=== PATIENT | female | born 1980 | race Caucasian/White ===

== ENCOUNTER 2016-03-27 14:36 | Emergency (ER) | payer BC, OTHER ==
[~2016-03-27] VITALS: Ht 160 cm; Wt 90.7 kg
[2016-03-27 15:08] VITALS: BP 131/91
--- NOTE | 2016-03-27 15:46 | PHYS DOC ---
Past Medical History Past Medical History: Other Additional Past Medical Histor: ovarian cancer Past Surgical History: Appendectomy, Hysterectomy Alcohol Use: None Drug Use: None Adult General Chief Complaint Chief Complaint: FOOT INJURY PAIN HPI HPI Patient is a 35 year old female who presents with mild right heel pain that began 5 days ago after she jumped off a broken elevator that was 7-8 foot high. Patient is up and ambulating with no difficulties. Review of Systems Review of Systems Constitutional: Denies fever or chills [] Musculoskeletal: Right heel pain Neurologic: Denies headache, focal weakness or sensory changes [] Endocrine: Denies polyuria or polydipsia [] Allergies Allergies Allergies Coded Allergies Type Severity Reaction Last Updated Verified codeine Allergy Intermediate Rash 03/27/16 Yes Physical Exam Physical Exam Constitutional: Well developed, well nourished, no acute distress, non-toxic appearance. [] Skin: Warm, dry, no erythema, no rash. [] Back: No tenderness, no CVA tenderness. [] Extremities: Right foot with no obvious deformity, no ecchymosis or edema. Tenderness diffusely on palpation of the right heel and Achilles tendon region. Patient able to flex and extend the right foot with no difficulty. +2 right pedal pulse. No pain or tenderness on palpation of the navicular bone or the base of the fifth metatarsal of the right foot. Cap refill less than 2 seconds the right toes. Sensation intact to the right foot. Neurologic: Alert and oriented X 3, normal motor function, normal sensory function, no focal deficits noted. [] Psychologic: Affect normal, judgement normal, mood normal. [] Current Patient Data Vital Signs Vital Signs Date Time Temp Pulse Resp B/P Pulse Ox O2 Delivery O2 Flow Rate FiO2 03/27/16 15:08 98.3 69 16 99 Room Air 98.3 EKG EKG [] Radiology/Procedures Radiology/Procedures []PROCEDURE: ANKLE RIGHT 3V; FOOT RIGHT 3V Indication pain associated with a fall. AP oblique and lateral views of the right ankle were obtained. Similarly AP oblique and lateral views of the foot were obtained. Views of the ankle are unremarkable. No fracture or bony abnormality is seen. Views of the foot also appear unremarkable showing no bony abnormality. IMPRESSION: No acute or significant finding seen involving the foot or ankle DICTATED and SIGNED BY: CHRISTINE MAN MD DATE: 03/27/16 7115 CC: GARFIELD GUARDADO APRN; NO PCP ~ Course & Med Decision Making Course & Med Decision Making Pertinent Labs and Imaging studies reviewed. (See chart for details) Patient is in the ED with right foot/heel pain after jumping off and elevator five days ago. Right foot and right ankle x-rays interpreted by radiologist are negative for any acute findings. Patient probably sprained her right ankle/ foot. Aircast applied to the right ankle by the Ed RN. Neurovascular exam done by me is normal. Cap refill less than 2 seconds. Ice elevation encouraged. F/u with Ortho in one week. Dragon Disclaimer Dragon Disclaimer This electronic medical record was generated, in whole or in part, using a voice recognition dictation system. Departure Departure Impression: Primary Impression: Right ankle sprain Additional Impression: Right foot sprain Disposition: HOME, SELF-CARE Condition: STABLE Referrals: NO PCP (PCP) JENNIFFER RESENDIZ MD see him in one week Patient Instructions: Ankle Sprain, Foot Sprain Additional Instructions: You were seen for right ankle/foot sprain. Your x-rays of the ankle and foot are normal. Wear the air cast as needed. Ice and elevate the extremity. Take anti-inflammatories especially naproxen as needed for pain. You can also take Tylenol for pain. Follow-up with the provided orthopedic doctor in one week if pain continues. Problem Qualifiers Primary Impression: Right ankle sprain Encounter type: initial encounter Involved ligament of ankle: unspecified ligament Qualified Code: S93.401A - Sprain of unspecified ligament of right ankle, initial encounter Additional Impression: Right foot sprain Encounter type: initial encounter Qualified Code: S93.601A - Unspecified sprain of right foot, initial encounter GARFIELD GUARDADO APRN Mar 27, 2016 15:46
--- NOTE | 2016-03-27 15:52 | RAD ---
Indication pain associated with a fall. AP oblique and lateral views of the right ankle were obtained. Similarly AP oblique and lateral views of the foot were obtained. Views of the ankle are unremarkable. No fracture or bony abnormality is seen. Views of the foot also appear unremarkable showing no bony abnormality. IMPRESSION: No acute or significant finding seen involving the foot or ankle
== END 2016-03-27 16:43 | disposition home or self-care (01) ==
LOC: ER 14:36
DX: S93.401A Sprain of unspecified ligament of right ankle, initial encounter (principal); S93.601A Unspecified sprain of right foot, initial encounter; Z88.5 Allergy status to narcotic agent; W17.89XA Other fall from one level to another, initial encounter; Y93.39 Activity, other involving climbing, rappelling and jumping off; Y99.8 Other external cause status; Y92.89 Other specified places as the place of occurrence of the external cause
CPT/HCPCS: 73610; 73630; 99284; L4350

== ENCOUNTER 2018-01-29 15:15 | Emergency (ER) | payer BC ==
[~2018-01-29] VITALS: Ht 157.5 cm; Wt 102.1 kg
[2018-01-29] MEDS ORDERED: predniSONE 10 MG TABLET PO ONE (16:00)
[2018-01-29] MEDS ORDERED: IBUPROFEN 400 MG TABLET. PO ONE (16:00)
[2018-01-29] MEDS ORDERED: IPRATRPIUM/ALBUTEROL 0.5/2.5MG 3 ML NEBU. NEB ONE (16:00)
--- NOTE | 2018-01-29 16:19 | RAD ---
CHEST PA LATERAL History: SOA, CHEST PAIN, COUGH Comparison: Two-view chest October 29, 2011. Findings: The cardiomediastinal silhouette is normal. Pulmonary vasculature is normal. The lungs are clear. No pleural effusion or pneumothorax is seen. There is no acute bone abnormality. IMPRESSION: No acute cardiopulmonary process. Electronically signed by: Devang Alejandra MD (01/29/2018 4:15 PM) [id number]
[2018-01-29 16:20] LABS: INFLUENZA A PATIENT NEGATIVE (NEGATIVE); INFLUENZA B PATIENT NEGATIVE (NEGATIVE)
[2018-01-29] MEDS ORDERED: AZIT250T6 PO (16:31)
[2018-01-29] MEDS ORDERED: PRED50TA PO (16:31)
[2018-01-29] MEDS ORDERED: BENZ100C PO (16:31)
[2018-01-29] MEDS ORDERED: PROAIR HFA8.5 GM INH (16:31)
--- NOTE | 2018-01-29 16:31 | PHYS DOC ---
Past Medical History Past Medical History: Other Additional Past Medical Histor: ovarian cancer Past Surgical History: Appendectomy, Hysterectomy Additional Information: 02/18 ppd Alcohol Use: None Drug Use: None Adult General Chief Complaint Chief Complaint: COUGH HPI HPI Patient is a 37 year old female who presents with 2 weeks of shortness of air, cough, rib pain from coughing and coughing up green mucus with chest congestion and throat pain and bilateral ear pain. Patient easily when taking Abimbola-Ferguson and Mucinex which isn't helping. Patient is allergic to codeine and did receive a flu shot. Patient denies fevers. She rates her pain an 8 out of 10. She does smoke but she is trying to stop. She is taking Wellbutrin Lexapro. Review of Systems Review of Systems Constitutional: Denies fever or chills [] Eyes: Denies change in visual acuity, redness, or eye pain [] HENT: nasal congestion and sore throat [] Respiratory: cough and shortness of breath [] Cardiovascular: No additional information not addressed in HPI [] GI: Denies abdominal pain, nausea, vomiting, bloody stools or diarrhea [] : Denies dysuria or hematuria [] Musculoskeletal: Denies back pain or joint pain [] Integument: Denies rash or skin lesions [] Neurologic: Denies headache, focal weakness or sensory changes [] Endocrine: Denies polyuria or polydipsia [] All other systems were reviewed and found to be within normal limits, except as documented in this note. Current Medications Current Medications Current Medications Medications (Trade) Dose Ordered Sig/Alonzo Start Time Stop Time Status Last Admin Dose Admin Albuterol/ Ipratropium (Duoneb) 3 ml 1X ONCE 01/29/18 16:00 01/29/18 16:01 DC 01/29/18 16:08 3 ML Ibuprofen (Motrin) 800 mg 1X ONCE 01/29/18 16:00 01/29/18 16:01 DC 01/29/18 16:01 800 MG Prednisone (Prednisone) 50 mg 1X ONCE 01/29/18 16:00 01/29/18 16:01 DC 01/29/18 16:00 50 MG Allergies Allergies Allergies Coded Allergies Type Severity Reaction Last Updated Verified codeine Allergy Intermediate Rash 03/27/16 Yes Physical Exam Physical Exam Constitutional: Well developed, well nourished, no acute distress, non-toxic appearance. [] HENT: Normocephalic, atraumatic, bilateral external ears normal, oropharynx moist, no oral exudates, nose normal. Nasal congestion, throat red but without exudates.[] Eyes: PERRLA, EOMI, conjunctiva normal, no discharge. [] Neck: Normal range of motion, no tenderness, supple, no stridor. [] Cardiovascular:Heart rate regular rhythm, no murmur [] Lungs & Thorax: Bilateral upper breath sounds clear to auscultation and lower bilaterally are diminished [] Abdomen: Bowel sounds normal, soft, no tenderness, no masses, no pulsatile masses. [] Skin: Warm, dry, no erythema, no rash. [] Back: No tenderness, no CVA tenderness. [] Extremities: No tenderness, no cyanosis, no clubbing, ROM intact, no edema. [] Neurologic: Alert and oriented X 3, normal motor function, normal sensory function, no focal deficits noted. [] Psychologic: Affect normal, judgement normal, mood normal. [] Current Patient Data Vital Signs Vital Signs Date Time Temp Pulse Resp B/P (MAP) Pulse Ox O2 Delivery O2 Flow Rate FiO2 01/29/18 16:08 Room Air 01/29/18 15:28 99.2 76 20 134/65 (88 98 99.2 Lab Values Laboratory Tests Test 01/29/18 15:55 Influenza Type A Antigen Negative (NEGATIVE) Influenza Type B Antigen Negative (NEGATIVE) EKG EKG [] Radiology/Procedures Radiology/Procedures [] Impressions: [facility] [address] [facility] [place] [address] IMAGING REPORT Signed PATIENT: DAVIDSON ANGULO ACCOUNT: [id number] : 1980 LOCATION: ER AGE: 37 SEX: F EXAM STATUS: REG ER ORD. PHYSICIAN: YONI YEUNG APRN REASON: cough PROCEDURE: CHEST PA & LATERAL CHEST PA LATERAL History: SOA, CHEST PAIN, COUGH Comparison: Two-view chest October 29, 2011. Findings: The cardiomediastinal silhouette is normal. Pulmonary vasculature is normal. The lungs are clear. No pleural effusion or pneumothorax is seen. There is no acute bone abnormality. IMPRESSION: No acute cardiopulmonary process. Electronically signed by: Devang Donahue MD (01/29/2018 4:15 PM) [id number] DICTATED and SIGNED BY: DEVANG DONAHUE MD DATE: 01/29/18 1614 Course & Med Decision Making Course & Med Decision Making Patient is a 37 year old female who presents with 2 weeks of shortness of air, cough, rib pain from coughing and coughing up green mucus with chest congestion and throat pain and bilateral ear pain. Patient easily when taking Abimbola-Ferguson and Mucinex which isn't helping. Patient is allergic to codeine and did receive a flu shot. Patient denies fevers. Patient denies dizziness, chest pain, nausea , vomiting, diarrhea, abdominal pain. She rates her pain an 8 out of 10. She does smoke but she is trying to stop. She is taking Wellbutrin Lexapro. And oriented. Skin pink warm and dry. Lungs are clear in upper lobes but diminished in bilateral lower lobes. There is red but there are no exudates. Patient has sinus congestion with sinus tenderness and bilateral tympanic are pearly white. Patient is afebrile. Flu was negative and strep is negative. She is given a breathing treatment, prednisone, ibuprofen and will be diagnosed with likely bronchitis. I will send her home with azithromycin since she has been having symptoms for the last 2 weeks, prednisone for 4 more days and a pro-air inhaler. Patient is told that she needs to call her doctor within the next 3 days but states she is not getting better. Dragon Disclaimer Dragon Disclaimer This electronic medical record was generated, in whole or in part, using a voice recognition dictation system. Departure Departure Impression: Primary Impression: Bronchitis Disposition: 01 HOME, SELF-CARE Condition: STABLE Referrals: NO PCP (PCP) Patient Instructions: Bronchitis Additional Instructions: CALL YOUR PRIMARY CARE DOCTOR IN THE MORNING. TAKE MEDICATIONS PRESCRIBED. Scripts Benzonatate (TESSALON PERLE) 100 Mg Capsule 1 CAP PO TID, #30 CAP Prov: YONI YEUNG MEAL COOK 01/29/18 Prednisone (PREDNISONE) 50 Mg Tablet 1 TAB PO DAILY, #4 TAB Prov: YONI YEUNG MEAL COOK 01/29/18 Albuterol Sulfate (PROAIR HFA INHALER) 8.5 Gm Hfa.aer.ad 1 PUFF INH PRN Q6HRS PRN for SHORTNESS OF BREATH, #1 INHALER 0 Refills Prov: YONI YEUNG APRN 01/29/18 Azithromycin (AZITHROMYCIN TABLET) 250 Mg Tablet 1 PKG PO UD, #6 TAB Prov: YONI YEUNG APRN 01/29/18 YONI YEUNG APRN Jan 29, 2018 16:31
[2018-01-29 16:39] VITALS: BP 132/68
== END 2018-01-29 16:39 | disposition home or self-care (01) ==
LOC: ER 15:15
DX: J40 Bronchitis, not specified as acute or chronic (principal); J02.9 Acute pharyngitis, unspecified; H92.03 Otalgia, bilateral; F17.200 Nicotine dependence, unspecified, uncomplicated; Z90.89 Acquired absence of other organs; Z90.710 Acquired absence of both cervix and uterus; Z88.5 Allergy status to narcotic agent
CPT/HCPCS: 71046; 87070; 87804; 87880; 94640; 99284; J7512; J7620

== ENCOUNTER 2018-02-08 00:02 | Emergency (ER) | payer BC ==
[~2018-02-08] VITALS: Ht 157.5 cm; Wt 99.8 kg
[~2018-02-08 00:02] MED LIST: ALBU2.5V8 INH; AZIT250T6 PO; BENZ100C PO; PRED50TA PO
[2018-02-08 03:15] VITALS: BP 121/61
[2018-02-08] MEDS ORDERED: oxyCODONE/APAP 10/325 1 TAB TABLET PO ONE (03:30)
--- NOTE | 2018-02-08 04:07 | PHYS DOC ---
Past Medical History Past Medical History: Other Additional Past Medical Histor: depression Past Surgical History: Hysterectomy Alcohol Use: None Drug Use: None Adult General Chief Complaint Chief Complaint: RIB PAIN HPI HPI Patient is a 37 year old female treated recently his emergency department for bronchial pneumonia who presents with acute chest wall pain after forceful coughing episode 3 days ago. Patient reports pain with deep inspiration and movement. No fever, chills, nausea vomiting or sweats. Denies shortness of breath. No leg pain or swelling. No history of DVT or PE. No other acute symptoms or complaints. [] Review of Systems Review of Systems Review symptoms as per history of present illness All other systems were reviewed and found to be within normal limits, except as documented in this note. Current Medications Current Medications Current Medications Medications (Trade) Dose Ordered Sig/Alonzo Start Time Stop Time Status Last Admin Dose Admin Oxycodone/ Acetaminophen (Percocet 10/325) 1 tab 1X ONCE 02/08/18 03:30 02/08/18 03:31 DC 02/08/18 02:59 1 TAB Allergies Allergies Allergies Coded Allergies Type Severity Reaction Last Updated Verified codeine Allergy Intermediate Rash 03/27/16 Yes Physical Exam Physical Exam Constitutional: Well developed, well nourished,or discomfort secondary to pain. [] HENT: Normocephalic, atraumatic, bilateral external ears normal, oropharynx moist, no oral exudates, nose normal. [] Eyes: PERRLA, EOMI, conjunctiva normal, no discharge. [] Neck: Normal range of motion, no tenderness, supple, no stridor. [] Cardiovascular:Heart rate regular rhythm, no murmur [] Lungs & Thorax: Bilateral breath sounds clear to auscultation, right lower anterior chest wall pain, tenderness. No splinting, subcutaneous emphysema or [] Abdomen: Bowel sounds normal, soft, no tenderness, no masses, no pulsatile masses. [] Skin: Warm, dry. [] Back: No tenderness. [] Extremities: No tenderness. [] Neurologic: Alert and oriented X 3, normal motor function, normal sensory function, no focal deficits noted. [] Psychologic: Affect , anxious.l. [] Current Patient Data Vital Signs Vital Signs Date Time Temp Pulse Resp B/P (MAP) Pulse Ox O2 Delivery O2 Flow Rate FiO2 02/08/18 02:59 18 100 Room Air 02/08/18 01:38 97.5 88 150/75 (100) 97.5 EKG EKG [] Radiology/Procedures Radiology/Procedures [Chest x-ray/right rib series: No obvious displaced rib fractures on preliminary ED reviewed.] Course & Med Decision Making Course & Med Decision Making Pertinent Labs and Imaging studies reviewed. (See chart for details) [Reproducible chest wall pain consistent with contused or nondisplaced rib fracture. We'll treat supportively with PCP follow-up. Return precautions reviewed.] Dragon Disclaimer Dragon Disclaimer This electronic medical record was generated, in whole or in part, using a voice recognition dictation system. Departure Departure Impression: Primary Impression: Rib pain on right side Disposition: HOME, SELF-CARE Condition: GOOD Referrals: NO PCP (PCP) Patient Instructions: Rib Contusion Additional Instructions: You were evaluated in the emergency department for right-sided chest wall pain. A chest x-ray was obtained. your tenderness consistent with a bruised rib or nondisplaced rib fracture. Please continue to believe twice daily and take hydrocodone as needed for additional relief. Follow-up with your PCP in 3-5 days for reevaluation.return to the ED if new or worsening symptoms. HENNY ARENAS DO Feb 08, 2018 04:07
--- NOTE | 2018-02-08 04:15 | RAD ---
Right RIBS including PA chest 02/08/2018. Reason for exam: Mid rib pain. No history of trauma is given. The chest film is compared with a study of 01/29/2018. No fracture or other abnormality of the right ribs is seen in these views. The PA view of the chest shows shallow inspiration without evidence of infiltrate or effusion. Heart size is normal. IMPRESSION: No apparent right rib abnormality. Electronically signed by: Bereket Cruz Jr., MD (02/08/2018 4:10 AM) [facility]
[2018-02-08] MEDS ORDERED: HYDR-3135 PO (04:42)
== END 2018-02-08 04:43 | disposition home or self-care (01) ==
LOC: ER 00:02
DX: R07.81 Pleurodynia (principal); R05 Cough; F32.9 Major depressive disorder, single episode, unspecified; Z88.5 Allergy status to narcotic agent
CPT/HCPCS: 71101; 99283

== ENCOUNTER 2018-03-09 16:28 | Emergency (ER) | payer BC ==
[~2018-03-09] VITALS: Ht 160 cm; Wt 99.8 kg
[~2018-03-09 16:28] MED LIST changes: +HYDR-3135 PO
[2018-03-09 19:05] VITALS: BP 138/70
[2018-03-09] MEDS ORDERED: IBUPROFEN 400 MG TABLET. PO ONE (19:15)
[2018-03-09] MEDS ORDERED: IBUP-1060 PO (19:25)
[2018-03-09] MEDS ORDERED: CEPH-264 PO (19:25)
[2018-03-09] MEDS ORDERED: HYDR-3164 PO (19:25)
[2018-03-09] MEDS ORDERED: HYDROcodone/APAP 5/325MG 1 TAB TABLET PO ONE (19:30)
[2018-03-09] MEDS ORDERED: CEPHALEXIN 250 MG CAPSULE. PO ONE (19:30)
--- NOTE | 2018-03-09 19:44 | PHYS DOC ---
Past Medical History Past Medical History: Other Additional Past Medical Histor: depression Past Surgical History: Hysterectomy Alcohol Use: None Drug Use: None Adult General Chief Complaint Chief Complaint: FINGER INJURY HPI HPI Patient is a 37 year old female who presents with fingernail avulsion. Patient states she fell 2 days earlier on the ice. She fell on outstretched hand. She did completely avulsed her fingernail on the left small finger. She presents to the ER today with pain and swelling. She does have the nail with her. Review of Systems Review of Systems Constitutional: Denies fever or chills HENT: Denies nasal congestion Respiratory: Denies cough or shortness of breath Cardiovascular: No additional information not addressed in HPI Musculoskeletal: Denies injuries other than those above Integument: Denies rash or skin lesions Neurologic: Denies Endocrine: Denies All other systems were reviewed and found to be within normal limits, except as documented in this note. Current Medications Current Medications Current Medications Medications (Trade) Dose Ordered Sig/Alonzo Start Time Stop Time Status Last Admin Dose Admin Acetaminophen/ Hydrocodone Bitart (Lortab 5/325) 2 tab 1X ONCE 03/09/18 19:30 03/09/18 19:31 DC Cephalexin HCl (Keflex) 500 mg 1X ONCE 03/09/18 19:30 03/09/18 19:31 DC Ibuprofen (Motrin) 800 mg 1X ONCE 03/09/18 19:15 03/09/18 19:16 DC Allergies Allergies Allergies Coded Allergies Type Severity Reaction Last Updated Verified codeine Allergy Intermediate Rash 03/09/18 Yes Physical Exam Physical Exam Constitutional: Well developed, well nourished, no acute distress, non-toxic appearance HENT: Normocephalic, atraumatic, bilateral external ears normal, oropharynx moist Skin: Warm, dry, no erythema, no rash. Back: Normal ROM Extremities: Left hand has complete avulsion of the small fingernail. The remaining finger has some localized edema and erythema. The nailbed appears to be intact and healing. Capillary refill is less than 2 seconds. Sensation light touch intact. All flexor and extensor mechanisms are intact. Sensation to light touch is intact. Neurologic: Alert and oriented X 3 Psychologic: Affect normal EKG EKG [] Radiology/Procedures Radiology/Procedures [] Course & Med Decision Making Course & Med Decision Making Pertinent Labs and Imaging studies reviewed. (See chart for details) Was evaluated in the emergency department today for a nail avulsion of the left hand. There was no indication for imaging. The patient has full range of motion. She had some erythema at the tip of the finger which is concerning for possible infection so the patient is started on Keflex. She was given ibuprofen and [place] for pain. Her tetanus immunization was up-to-date. She was recommended to follow-up with her primary care doctor. She was given also a metal finger splint primarily for comfort. Return to the ER for any new or acute symptoms. Dragon Disclaimer Dragon Disclaimer This electronic medical record was generated, in whole or in part, using a voice recognition dictation system. Departure Departure Impression: Primary Impression: Fingernail avulsion Disposition: 01 HOME, SELF-CARE Condition: GOOD Patient Instructions: Fingernail or Toenail Loss Scripts Cephalexin (KEFLEX) 500 Mg Capsule 500 MG PO QID for 10 Days, #40 CAP Prov: DOYLE JORDAN DO 03/09/18 Hydrocodone/Apap 5-325 (NORCO 5-325 TABLET) 1 Each Tablet 1-2 EACH PO PRN Q6HRS PRN for SEVERE PAIN, #15 as needed for pain Prov: DOYLE JORDAN DO 03/09/18 Ibuprofen (IBUPROFEN) 800 Mg Tablet 800 MG PO PRN TID PRN for PAIN, #30 TAB take with food or milk to avoid upsetting stomach Prov: DOYLE JORDAN DO 03/09/18 DOYLE JORDAN DO Mar 09, 2018 19:44
== END 2018-03-09 19:40 | disposition home or self-care (01) ==
LOC: ER 16:28
DX: S61.307A Unspecified open wound of left little finger with damage to nail, initial encounter (principal); F32.9 Major depressive disorder, single episode, unspecified; Z90.710 Acquired absence of both cervix and uterus; Z88.5 Allergy status to narcotic agent; W00.0XXA Fall on same level due to ice and snow, initial encounter; Y93.89 Activity, other specified; Y92.89 Other specified places as the place of occurrence of the external cause; Y99.8 Other external cause status
CPT/HCPCS: 99284

== ENCOUNTER 2019-06-27 13:42 | Emergency (ER) | payer SELFPAY ==
[~2019-06-27] VITALS: Ht 160 cm; Wt 95.0 kg
[2019-06-27 13:42] VITALS: BP 142/95
[~2019-06-27 13:42] MED LIST changes: +AMOX1TAB61 PO; +CEPH-264 PO; +HYDR-3164 PO; +HYDR5SUS PO; +IBUP-1060 PO; +METH4TAB2 PO
[2019-06-27] MEDS ORDERED: AMOX500C PO (14:09)
--- NOTE | 2019-06-27 14:09 | PHYS DOC ---
Past Medical History Past Medical History: Cancer, Other Additional Past Medical Histor: depression Past Surgical History: Hysterectomy Smoking Status: Current Every Day Smoker Alcohol Use: None Drug Use: None General Adult EDM: Chief Complaint: SORE THROAT HPI: HPI: Patient is a 38-year-old otherwise healthy female who presents with a sore throat and fever. She states she gets strep every year and this feels just like it. She has difficulty swallowing. She denies any cough or congestion. She denies any rash. [] Review of Systems: Review of Systems: Constitutional: Denies fever or chills. [] Eyes: Denies change in visual acuity. [] HENT: Per HPI. [] Respiratory: Denies cough or shortness of breath. [] Cardiovascular: Denies chest pain or edema. [] GI: Denies abdominal pain, nausea, vomiting, bloody stools or diarrhea. [] : Denies dysuria. [] Musculoskeletal: Denies back pain or joint pain. [] Integument: Denies rash. [] Neurologic: Denies headache, focal weakness or sensory changes. [] Endocrine: Denies polyuria or polydipsia. [] Lymphatic: Denies swollen glands. [] Psychiatric: Denies depression or anxiety. [] Heart Score: Risk Factors: Risk Factors: DM, Current or recent (<one month) smoker, HTN, HLP, family history of CAD, obesity. Risk Scores: Score 0 - 3: 2.5% MACE over next 6 weeks - Discharge Home Score 4 - 6: 20.3% MACE over next 6 weeks - Admit for Clinical Observation Score 7 - 10: 72.7% MACE over next 6 weeks - Early Invasive Strategies Allergies: Allergies: Allergies Coded Allergies Type Severity Reaction Last Updated Verified codeine Allergy Intermediate Rash 03/09/18 Yes Physical Exam: PE: Constitutional: Well developed, well nourished, no acute distress, non-toxic appearance. [] HENT: Normocephalic, atraumatic, bilateral external ears normal, posterior pharynx is erythematous with exudative plaques. [] Eyes: PERRLA, EOMI, conjunctiva normal, no discharge. [] Neck: Normal range of motion, no tenderness, supple, no stridor. [] Cardiovascular:Heart rate regular rhythm, no murmur [] Lungs & Thorax: Bilateral breath sounds clear to auscultation [] Abdomen: Bowel sounds normal, soft, no tenderness, no masses, no pulsatile masses. [] Skin: Warm, dry, no erythema, no rash. [] Back: No tenderness, no CVA tenderness. [] Extremities: No tenderness, no cyanosis, no clubbing, ROM intact, no edema. [] Neurologic: Alert and oriented X 3, normal motor function, normal sensory function, no focal deficits noted. [] Psychologic: Affect normal, judgement normal, mood normal. [] EKG: EKG: [] Radiology/Procedures: Radiology/Procedures: [] Course & Med Decision Making: Course & Med Decision Making Pertinent Labs and Imaging studies reviewed. (See chart for details) [] Dragon Disclaimer: Dragon Disclaimer: This electronic medical record was generated, in whole or in part, using a voice recognition dictation system. Departure Departure Impression: Primary Impression: Strep pharyngitis Disposition: HOME, SELF-CARE Condition: STABLE Referrals: NO PCP (PCP) Patient Instructions: Strep Throat Scripts Amoxicillin (AMOXICILLIN) 500 Mg Capsule 1 CAP PO TID for pharyngitis, #30 CAP Prov: TA THAKKAR DO 06/27/19 TA THAKKAR DO June 27, 2019 14:09
== END 2019-06-27 14:34 | disposition home or self-care (01) ==
LOC: ER 13:42
DX: J02.0 Streptococcal pharyngitis (principal); B95.5 Unspecified streptococcus as the cause of diseases classified elsewhere; R50.9 Fever, unspecified; F32.9 Major depressive disorder, single episode, unspecified; F17.200 Nicotine dependence, unspecified, uncomplicated; Z85.9 Personal history of malignant neoplasm, unspecified; Z90.710 Acquired absence of both cervix and uterus; Z88.5 Allergy status to narcotic agent
CPT/HCPCS: 99283

== ENCOUNTER 2021-04-07 03:00 | Emergency (ER) | payer SELFPAY ==
[~2021-04-07] VITALS: Ht 160 cm; Wt 114.0 kg
[~2021-04-07 03:00] MED LIST changes: +AMOX500C PO
--- NOTE | 2021-04-07 03:26 | PHYS DOC ---
Past Medical History Past Medical History: Cancer, Other Additional Past Medical Histor: depression Past Surgical History: Hysterectomy Smoking Status: Current Every Day Smoker Alcohol Use: None Drug Use: None General Adult EDM: Chief Complaint: SHORTNESS OF BREATH HPI: HPI: 40-year-old female past medical history of ovarian cancer (s/p JESSICA-BSO, no chemo/rads-diagnosed 13 yrs ago s/p ), obesity, tobacco and vaping, presents to the ED with complaints of " I feel I cannot breathe and my sternum is broken." Patient complains of intermittent shortness of breath and mild, nonradiating chest pain for the past 4 to 5 days 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 States she had Covid in December 2020 in January 2021. Did not require hospitalization or supplemental oxygen. Has no underlying lung disease. No history of cocaine, alcohol or drug use. States she had hydrocodone/apap 5/325 left over from right ankle surgery and she took 1 tablet last night with significant relief in her pain, "I was able to sle ep." Reports her friend told her she likely had walking pneumonia. Is worried because she has a trip planned to [place] tomorrow. Refuses covid vaccination due to "too many allergies." States "my throat closes up with codeine," but has never required any hospitalization or intubation. Also states "I think I'm immunocompromised but haven't been diagnosed." Reports grandfather with history of brain aneurysm. No personal or family history of AAA, AAD, CTD (ehlos danlos or marfans), cardiac arrhythmias (need for AICD), CAD, sudden or unexplainable (under 50 years of age or with exertion), or clotting disorders. Review of Systems: Review of Systems: Constitutional: Denies fever or chills. [] Eyes: Denies change in visual acuity. [] HENT: Denies nasal congestion or sore throat. [] Respiratory: Denies hemoptysis or increased work of breathing Cardiovascular: Denies syncope or edema. [] GI: Denies abdominal pain, nausea, vomiting, bloody stools or diarrhea. [] : Denies dysuria or vaginal bleeding Musculoskeletal: Denies back pain or joint pain or leg swelling Integument: Denies rash or diaphoresis Neurologic: Denies headache, focal weakness or sensory changes. [] Endocrine: Denies polyuria or polydipsia. [] Lymphatic: Denies swollen glands. [] Psychiatric: Denies depression or anxiety. [] Heart Score: C/O Chest Pain: Yes HEART Score for Chest Pain: HEART Score for Chest Pain Response (Comments) Value History Slighlty/Non-Suspicious 0 ECG Normal 0 Age < 45 0 Risk Factors 1 or 2 Risk Factors 1 Troponin < Normal Limit 0 Total 1 Risk Factors: Risk Factors: DM, Current or recent (<one month) smoker, HTN, HLP, family history of CAD, obesity. Risk Scores: Score 0 - 3: 2.5% MACE over next 6 weeks - Discharge Home Score 4 - 6: 20.3% MACE over next 6 weeks - Admit for Clinical Observation Score 7 - 10: 72.7% MACE over next 6 weeks - Early Invasive Strategies Allergies: Allergies: Allergies Coded Allergies Type Severity Reaction Last Updated Verified codeine Allergy Intermediate Rash 03/09/18 Yes Physical Exam: PE: Constitutional: Well developed, well nourished, no acute distress, non-toxic appearance. HENT: Normocephalic, atraumatic, Eyes: EOMI, conjunctiva normal, no discharge. Neck: Normal range of motion, supple, Cardiovascular: S1/2 present, regular rhythm, sternal & parasternal ttp-no crepitus Lungs & Thorax: Speaking in full sentences, bilateral equal chest rise, no tachypnea or increased work of breathing, dry cough present Abdomen: soft, no tenderness, Skin: Warm, dry, no erythema, no rash. [] Back: No tenderness, no CVA tenderness. [] Extremities: No tenderness, no cyanosis, no unilateral lower extremity edema Neurologic: Alert and oriented X 3, normal motor function, normal sensory function, no focal deficits noted. [] Psychologic: Affect normal, judgement normal, mood normal. [] EKG: EKG: Sinus rhythm 83 bpm, no axis deviation, normal intervals, no T wave inversion, no ST elevation or ST depression Radiology/Procedures: Radiology/Procedures: IMAGING REPORT Signed PATIENT: DAVIDSON ANGULO ACCOUNT: [id number] : 1980 LOCATION: ER AGE: 40 SEX: F EXAM STATUS: PRE ER ORD. PHYSICIAN: GI MENDEZ DO REASON: cp PROCEDURE: PORTABLE CHEST 1V XR CHEST 1V INDICATION: cp COMPARISON STUDY: None. FINDINGS: Lungs: Normal lung volume. No pulmonary mass or consolidation. The tracheobronchial tree and hilar structures are normal. Pleura: No pleural effusion or pneumothorax. Heart and Mediastinum: The cardiomediastinal silhouette is normal. The great vessels of the thorax are normal. Bones and Soft Tissues: The bones and soft tissues are within normal limits. IMPRESSION: No acute cardiopulmonary process. Electronically signed by: Sudhir Espana MD (04/07/2021 3:35 AM) [facility] DICTATED and SIGNED BY: SUDHIR ESPANA MD DATE: 04/07/21 [id number] 0 IMAGING REPORT Signed PATIENT: DAVIDSON ANGULO ACCOUNT: [id number] : 1980 LOCATION: ER AGE: 40 SEX: F EXAM STATUS: REG ER ORD. PHYSICIAN: GI MENDEZ DO REASON: soa, recent covid, r/o pe, OMNI 350 100 ML IV PROCEDURE: CT ANGIOGRAPHY CHEST CTA CHEST INDICATION: soa, recent covid, r/o pe Comparison: Chest radiograph 04/07/2021. TECHNIQUE: Following the uneventful administration of intravenous contrast, 100 cc Omnipaque 350, axial CT sections were obtained through the lungs and upper abdomen. Multiplanar reconstructions and MIP images were obtained. PQRS compliance statement: One or more of the following individualized dose reduction techniques were utilized for this examination: 1. Automated exposure control 2. Adjustment of the mA and/or kV according to patient size 3. Use of iterative reconstruction technique FINDINGS: Pulmonary arteries: No evidence of pulmonary thromboembolic disease Lungs and Airways: No pulmonary mass or consolidation. No abnormality of the central airways. Pleura: The pleural spaces are normal. Heart and Mediastinum: The visualized thyroid is normal in size and attenuation. No axillary or supraclavicular lymphadenopathy. No mediastinal, hilar or retrocrural lymphadenopathy. The heart and pericardium are within normal limits. The great vessels of the thorax are normal. Abdomen: Limited images through the upper abdomen show no abnormality of the visualized organs. Bones and Soft Tissues: The visualized bones and chest wall soft tissues are within normal limits. IMPRESSION: 1. No evidence of pulmonary thromboembolic disease. 2. No pulmonary mass or consolidation Electronically signed by: Sudhir Espana MD (04/07/2021 5:09 AM) [facility] DICTATED and SIGNED BY: SUDHIR ESPANA MD DATE: 04/07/21 [id number] 0 Impression: 1 criteria-If any criteria are positive, the PERC rule cannot be used to rule out PE in this patient. Course & Med Decision Making: Course & Med Decision Making Pertinent Labs and Imaging studies reviewed. (See chart for details) Concern for focal, sternal, nonradiating chest pain for approximately 4-5 days. On reevaluation pain is reproducible with palpation. No relief with fentanyl. Was treated with Toradol and lidocaine patch in emergency department with improvement in pain. EKG with no ischemia. Troponin and D-dimer within normal limits (unable to PERC out due to saturations of 94%). CT of the chest shows no pulmonary embolus or infiltrate. Patient hemodynamically stable, calm, in no distress and afebrile. Patient denies any prior liver disease and admits to a few drinks of alcohol prior to ED arrival. No history of elevated liver enzymes. I recommended oral hydration, NSAIDs (consider topical >> oral if no relief with oral) and lidocaine patches. Will discharge home with strict ED return precautions were given for severe pain, syncope or neurologic deficits. Encouraged urgent outpatient follow-up with PMD for routine care and to repeat liver enzymes. Life-threatening processes were considered but are low suspicion at this time, given history, physical exam and ED workup. Pt was educated on all prescription medications and adverse effects. All patient's questions were answered and pt was stable at time of discharge. Life/limb-threatening differential includes but is not limited to, acute myocardial infarction, aortic dissection, congestive heart failure, esophageal injury including rupture, surgical abdomen, arrhythmia, cardiomyopathy, myocarditis, pericarditis, peptic ulcer disease, pneumomediastinum, pneumonia, pneumothorax, pulmonary embolus, unstable angina, rib fracture, contusion, pericardial tamponade or effusion, traumatic injury including mediastinal hemorrhage or hematoma, or pulmonary contusion. I have spoken with the patient and/or caregivers. I explained the patient's condition, diagnoses and treatment plan based on the information available to me at this time. I have answered the patient and/or caregiver's questions and addressed any concerns. The patient and/or caregivers have a good understanding of patient's diagnosis, condition and treatment plan as can be expected at this point. Vital signs have been stable. Patient's condition is stable and appropriate for discharge from the emergency department. Patient will pursue further outpatient evaluation with primary care physician or other designated or consulting physician as outlined in the discharge instructions. The patient and/or caregivers are agreeable to this plan of care and follow-up instructions have been explained in detail. The patient and/or caregivers have received these instructions in written form and have expressed an understanding of the discharge instructions. The patient and/or caregivers are aware that any significant change of condition or worsening of symptoms should prompt immediate return to this or the closest emergency department or call to 911. Nehemias Disclaimer: Nehemias Disclaimer: This electronic medical record was generated, in whole or in part, using a voice recognition dictation system. Departure Departure Impression: Primary Impression: Chest pain Additional Impression: Elevated liver enzymes Disposition: HOME / SELF CARE / HOMELESS Condition: STABLE Referrals: NO PCP (PCP) Follow-up with your primary care physician in 24 to 48 hours to repeat liver functions OR FOLLOW UP WITH FAMILY MEDICINE: [address] [place] [address] Patient Instructions: Chest Pain (Nonspecific), Costochondritis Additional Instructions: EMERGENCY DEPARTMENT GENERAL DISCHARGE INSTRUCTIONS Thank you for coming to [facility] Emergency Department (ED) today and trusting us with you care. We trust that you had a positive experience in our Emergency Department. If you wish to speak to the department management, you may call the Director at [phone]. YOUR FOLLOW UP INSTRUCTIONS ARE FOLLOWS: 1. Do you have a private Doctor? If you do not have a private doctor, please ask for a resource list of physicians or clinics that may be able to assist you with follow up care. 2. The Emergency Physicain has interpreted your x-rays. The X-Ray specialist will also review them. If there is a change in the findings, you will be notified in 48 hours when at all possible. 3. A lab test or culture has been done, your results will be reviewed and you will be notified if you need a change in treatment. ADDITIONAL INSTRUCTIONS AND INFORMATION: 1. Your care today has been supervised by a physician who is specially trained in emergency care. Many problems require more than one evaluation for a complete diagnosis and treatment. We recommend that you schedule your follow up appointment as recommended to ensure complete treatment of you illness or injury. If you are unable to obtain follow up care and continue to have a problem, or if your condition worsens, we recommend that you return to the ED. 2. We are not able to safely determine your condition over the phone nor are we able to give sound medical advice over the phone. For these safety reasons, if you call for medical advice we will ask you to come to the ED for further evaluation. 3. If you have any questions regarding these discharge instructions please call the ED at [phone]. SAFETY INFORMATION: In the interest of safety, wellness, and injury prevention; we encourage you to wear your sealbelt, if you smoke; quite smoking, and we encourage family to use a protective helmet for bicycling and other sporting events that present an increased risk for head injury. IF YOUR SYMPTOMS WORSEN OR NEW SYMPTOMS DEVELOP, OR YOU HAVE CONCERNS ABOUT YOUR CONDITION; OR IF YOUR CONDITION WORSENS WHILE YOU ARE WAITING FOR YOUR FOLLOW UP APPOINTMENT; EITHER CONTACT YOUR PRIMARY CARE DOCTOR, THE PHYSICIAN WHOSE NAME AND NUMBER YOU WERE GIVEN, OR RETURN TO THE ED IMMEDIATELY. Scripts Ibuprofen (Ibuprofen) 600 Mg Tablet 600 MG PO Q6HRS IV PRN for PAIN, #30 TAB Prov: GI MENDEZ DO 04/07/21 Lidocaine (Lido Chin) 1 Each Adh..patch 1 EACH TP DAILY for 5 Days, #5 PATCH Apply 1 patch for 12 hours, remove for another 12 hours. May repeat, 1 patch per day as instructed above. Prov: GI MENDEZ DO 04/07/21 GI MENDEZ DO Apr 07, 2021 03:26
[2021-04-07 03:35] LABS: BASO # 0.1 x10^3/uL (0.0-0.2); BASO % 1 % (0-3); EOS # 0.2 x10^3/uL (0.0-0.7); EOS % 2 % (0-3); HEMATOCRIT 41.9 % (36.0-47.0); HEMOGLOBIN 14.3 g/dL (12.0-15.5); LYMPH # 2.2 x10^3/uL (1.0-4.8); LYMPH % 27 % (24-48); MEAN CORPUSCULAR HEMOGLOBIN 32 pg (25-35); MEAN CORPUSCULAR HGB CONC 34 g/dL (31-37); MEAN CORPUSCULAR VOLUME 93 fL (79-100); MONO # 0.4 x10^3/uL (0.0-1.1); MONO % 5 % (0-9); NEUT # 5.1 x10^3/uL (1.8-7.7); NEUT % 64 % (31-73); PLATELET COUNT 241 x10^3/uL (140-400); RED BLOOD COUNT 4.49 x10^6/uL (3.50-5.40); RED CELL DISTRIBUTION WIDTH 13.7 % (11.5-14.5)
--- NOTE | 2021-04-07 03:37 | RAD ---
XR CHEST 1V INDICATION: cp COMPARISON STUDY: None. FINDINGS: Lungs: Normal lung volume. No pulmonary mass or consolidation. The tracheobronchial tree and hilar st ructures are normal. Pleura: No pleural effusion or pneumothorax. Heart and Mediastinum: The cardiomediastinal silhouette is normal. The great vessels of the thorax ar e normal. Bones and Soft Tissues: The bones and soft tissues are within normal limits. IMPRESSION: No acute cardiopulmonary process. Electronically signed by: Aroldo Tucker MD (04/07/2021 3:35 AM) [facility]
[2021-04-07 03:45] LABS: CALCIUM 8.6 mg/dL (8.5-10.1); CREATININE 0.8 mg/dL (0.6-1.0); GFR 79.9; POTASSIUM 3.7 mmol/L (3.5-5.1)
--- NOTE | 2021-04-07 03:45 | EKG ---
[facility] [address] [place] [address] Test Date: 2021-04-07 Test Time: 03:09:46 Pat Name: DAVIDSON ANGULO Department: Room: Gender: F Dental Associate: : 1980 Requested By: GI MENDEZ Order Number: [id number] Reading MD: Markus Membreno Measurements Intervals [place] Rate: 83 P: 51 LA: 134 QRS: 46 QRSD: 86 T: 52 QT: 380 QTc: 447 Interpretive Statements SINUS RHYTHM NORMAL ECG RI6.02 No previous ECG available for comparison Electronically Signed On 04-08-2021 13:55:06 [employer] by Markus Membreno
[2021-04-07 03:46] LABS: PREG TEST PT QUAL NEGATIVE (NEG)
[2021-04-07 03:51] LABS: ALBUMIN 3.8 g/dL (3.4-5.0); MAGNESIUM 2.1 mg/dL (1.8-2.4); TOTAL BILIRUBIN 0.4 mg/dL (0.2-1.0); TOTAL PROTEIN 7.6 g/dL (6.4-8.2)
[2021-04-07] MEDS ORDERED: fentaNYL PF VIAL 100 MCG/2 ML VIAL IVP ONE (04:00)
[2021-04-07] MEDS ORDERED: CONTRAST GIVEN. MC PRN (04:45)
[2021-04-07] MEDS ORDERED: IOHEXOL 350 MG/ML 100 ML VIAL. IV ONE (04:45)
--- NOTE | 2021-04-07 05:11 | RAD ---
CTA CHEST INDICATION: soa, recent covid, r/o pe Comparison: Chest radiograph 04/07/2021. TECHNIQUE: Following the uneventful administration of intravenous contrast, 100 cc Omnipaque 350, axi al CT sections were obtained through the lungs and upper abdomen. Multiplanar reconstructions and MIP images were obtained. RS compliance statement: One or more of the following individualized dose reduction techniques were utilized for this examinat ion: 1. Automated exposure control 2. Adjustment of the mA and/or kV according to patient size 3. Use of iterative reconstruction technique FINDINGS: Pulmonary arteries: No evidence of pulmonary thromboembolic disease Lungs and Airways: No pulmonary mass or consolidation. No abnormality of the central airways. Pleura: The pleural spaces are normal. Heart and Mediastinum: The visualized thyroid is normal in size and attenuation. No axillary or supra clavicular lymphadenopathy. No mediastinal, hilar or retrocrural lymphadenopathy. The heart and peric ardium are within normal limits. The great vessels of the thorax are normal. Abdomen: Limited images through the upper abdomen show no abnormality of the visualized organs. Bones and Soft Tissues: The visualized bones and chest wall soft tissues are within normal limits. IMPRESSION: 1. No evidence of pulmonary thromboembolic disease. 2. No pulmonary mass or consolidation Electronically signed by: Aroldo Tucker MD (04/07/2021 5:09 AM) [facility]
[2021-04-07] MEDS ORDERED: KETOROLAC 30 MG/ML VIAL. IVP ONE (05:30)
[2021-04-07] MEDS ORDERED: LIDO1ADH78 TP (05:31)
[2021-04-07] MEDS ORDERED: IBUP-985 PO (05:31)
[2021-04-07] MEDS ORDERED: LIDOCAINE (700MG/PATCH) PATCH. TD ONE (05:45)
[2021-04-07 05:59] VITALS: BP 121/56
--- NOTE | 2021-04-09 09:50 | NUR ---
IP: Informed pt of negative covid test. Pt verbalized understanding.
== END 2021-04-07 06:00 | disposition home or self-care (01) ==
LOC: ER 03:00
DX: R07.89 Other chest pain (principal); Z20.822 Contact with and (suspected) exposure to COVID-19; R74.8 Abnormal levels of other serum enzymes; Z72.0 Tobacco use; Z88.5 Allergy status to narcotic agent
CPT/HCPCS: 71045; 71275; 80053; 83690; 83735; 83880; 84484; 84703; 85025; 85379; 87426; 93005; 96374; 96375; 99285; C9803; J1885; J3010; Q9967; U0003